=== PATIENT | female | born 1945 | race Caucasian/White ===

== ENCOUNTER → 2021-02-12 10:57 | Outpatient (BNVA) | payer MEDICARE, OTHER, SELFPAY | PROVIDERS: PCP Nurse Practitioner Family; Visit Provider Student in an Organized Health Care Education/Training Program | DX: M17.11 Unilateral primary osteoarthritis, right knee (principal); M54.5 Low back pain; G89.29 Other chronic pain; E11.9 Type 2 diabetes mellitus without complications | CPT/HCPCS: 99203 ==

== ENCOUNTER → 2021-02-19 12:52 | Outpatient (BNVA) | payer MEDICARE, OTHER, SELFPAY | PROVIDERS: PCP Nurse Practitioner Family; Referring Provider Nurse Practitioner Family | DX: M17.11 Unilateral primary osteoarthritis, right knee (principal) | CPT/HCPCS: 20610; J1040 ==

== ENCOUNTER → 2021-05-14 10:58 | Outpatient (BNVA) | payer MEDICARE, OTHER, SELFPAY | PROVIDERS: PCP Nurse Practitioner Family; Referring Provider Nurse Practitioner Family; Visit Provider Student in an Organized Health Care Education/Training Program | DX: M17.11 Unilateral primary osteoarthritis, right knee (principal); E11.9 Type 2 diabetes mellitus without complications | CPT/HCPCS: 20610; J1040 ==

== ENCOUNTER → 2021-07-27 14:00 | Outpatient (BNVA) | payer MEDICARE, OTHER, SELFPAY | PROVIDERS: PCP Nurse Practitioner Family; Referring Provider Nurse Practitioner Family; Visit Provider Student in an Organized Health Care Education/Training Program | DX: S72.431A Displaced fracture of medial condyle of right femur, initial encounter for closed fracture (principal); X58.XXXA Exposure to other specified factors, initial encounter; E11.9 Type 2 diabetes mellitus without complications; I50.9 Heart failure, unspecified; I25.2 Old myocardial infarction | CPT/HCPCS: 99214 ==

== ENCOUNTER 2022-02-11 11:27 | Outpatient (CLI) | payer MEDICARE, OTHER, SELFPAY ==
--- NOTE | 2022-02-11 06:00 | DI.RAD_ITS ---
Exam(s) XR PAIN CLINIC FLUORO JOINT IN EXAM: XR PAIN CLINIC FLUORO JOINT IN CLINICAL HISTORY: DX: right knee osteoarthritis TECHNIQUE: 2D and realtime digital imaging was performed. CONTRAST MATERIAL: Refer to procedure report. COMPARISON: No exams were available for comparison FINDINGS: Fluoroscopy was provided for Dr. Arciniega during the performance of a right genicular nerve block. Plea se refer to the procedure report for complete details. Ka,r=3.5 mGy IMPRESSION:
[2022-02-11 11:57] VITALS: BP 130/56; PULSE 61; RESP 20; TEMP 36.9; O2SAT 100
[2022-02-11 12:22] VITALS: BP 122/72; PULSE 60; RESP 20; O2SAT 100
--- NOTE | 2022-02-11 12:34 | PDOC.PAIN_ITS ---
Pain Clinic Procedure Note Procedure Note Procedure Note: RIGHT GENICULAR NERVE BLOCK Date of Service: February 11, 2022 Patient: JIMMY GAMING Provider: Efrain Arciniega DO, MPH Pre-operative diagnosis: Right Knee osteoarthritis Post-operative diagnosis: Same Pre-procedure pain: VAS= 10/10 COMMENTS: She was previously evaluated in the office JIMMY GAMING has been [facility] for RIGHTgenicular nerve block. JIMMY was interviewed and the medical record reviewed. There were no medical, pharmacologic, radiographic or other structural contraindications to attempting fluoroscopically guided RIGHT genicular nerve block. Risks and potential side effects as well as potential benefit of the procedure were reviewed with JIMMY , and HER voiced concerns were addressed. After I believed that the patient was completely informed, the printed consent form was signed. Standard time-out procedure was performed. JIMMY was placed in the supine position on the fluoroscopy table and automated blood pressure cuff and pulse oximeter applied. The skin entry points for approaching RIGHT superolateral genicular nerve, the superomedial genicular nerve, the terminal branch of the nerve vastus intermedius and the inferomedial genicular was identified under the most advantageous fluoroscopic view and marked. Following thorough Chlorhexadine preparation of the skin and draping, 1% lidocaine infiltration of the skin entry point . Next, the 3.5 25G spinal needle was advanced to os at the location of the specific nerve root using fluoroscopic guidance. Next, 1 ml of 0.5% Bupivacaine was injected at each site. The needles were removed without difficulty. JIMMY's vital signs were stable throughout the procedure and were as recorded in the docflowsheet by the nursing staff. If given, dosages of intravenous drugs for anxiolysis and analgesia were documented in JUL. Follow up plans and appointments were discussed with the JIMMY . Post procedure instruction was given as documented in nursing documentation and having met discharge criteria, JIMMY was discharged from the [facility]. COMMENTS: No apparent complications. Post-procedure pain: VAS = 2/10. The patient will keep track of her RIGHT knee pain over the next four hours. If JIMMY has sufficient pain relief, JIMMY will be a candidate for radiofrequency ablation at the same nerves. Tank WJ1, Elliot SJ, Emile BaconG, Orville JG, Ferny ESCOBAR, Melinda PH, Tomas JW. Radiofrequency treatment relieves chronic knee osteoarthritis pain: a double-blind randomized controlled trial. Pain. 2011 Jul;152(3):481-7. doi: 10.1016/j.pain.2010.09.029. Natali S1, Aaron ON2, Justa Y3, ?zl?cande P2, Evan U1, Herve ?m?rl? I. Which one is more effective for the clinical treatment of chronic pain in knee osteoarthritis: radiofrequency neurotomy of the genicular nerves or intra-art icular injection? Int J Rheum Dis. 2016 Jan 08. F/U with our office by phone to report the 1-4 hour post-procedure pain VAS levels. Efrain Arciniega DO, MPH [facility]
[2022-02-11] MEDS: Bupivacaine 0.5% Pres-Free 10 ML VIAL IJ (12:51)
[2022-02-11] MEDS: Omnipaque 240 MG/ML 50 ML BTL IJ (12:51)
== END 2022-02-11 11:28 | disposition home or self-care (01) ==
LOC: PC 11:27
PROVIDERS: PCP Nurse Practitioner Family; Visit Provider Preventive Medicine Occupational Medicine
DX: M17.11 Unilateral primary osteoarthritis, right knee (principal); M25.561 Pain in right knee
CPT/HCPCS: 64454; 77002; Q9967

== ENCOUNTER → 2023-03-30 12:51 | Outpatient (BNVA) | payer MEDICARE, SELFPAY | PROVIDERS: PCP Nurse Practitioner Family; Referring Provider Nurse Practitioner Family; Visit Provider Podiatrist | DX: B35.1 Tinea unguium (principal); L60.3 Nail dystrophy; E11.51 Type 2 diabetes mellitus with diabetic peripheral angiopathy without gangrene; E11.42 Type 2 diabetes mellitus with diabetic polyneuropathy; E11.8 Type 2 diabetes mellitus with unspecified complications; I87.2 Venous insufficiency (chronic) (peripheral) | CPT/HCPCS: 11721 ==